=== PATIENT | male | born 1975 | race Caucasian/White ===

== ENCOUNTER 2017-02-10 20:38 | Emergency (ER) | payer MEDICAID, OTHER ==
[~2017-02-10] VITALS: Ht 170.2 cm; Wt 81.8 kg
[2017-02-10] MEDS ORDERED: KETOROLAC 60MG/2ML VIAL IM ONE (22:15)
[2017-02-10] MEDS ORDERED: CEFTRIAXONE SODIUM 1 G/VIAL IM ONE (23:00)
[2017-02-10] MEDS ORDERED: LIDOCAINE HCL 1% 20ML VIAL (Pyxis) INJ MC ONE (23:15)
[2017-02-11] MEDS ORDERED: TRAMADOL 50MG TABLET PO ONE (01:30)
[2017-02-11 02:22] VITALS: BP 135/79
== END 2017-02-11 02:24 | disposition home or self-care (01) ==
LOC: ER 21:50
DX: L03.116 Cellulitis of left lower limb (principal); F15.10 Other stimulant abuse, uncomplicated
CPT/HCPCS: 93971; 96372; 99284; J0696; J1885; J3490; Z7610

== ENCOUNTER 2017-02-23 10:39 | Emergency (ER) | payer MEDICAID ==
[~2017-02-23] VITALS: Ht 170.2 cm; Wt 82.0 kg
[2017-02-23 10:40] VITALS: BP 156/85
[2017-02-23] MEDS ORDERED: DIPHENHYDRAMINE 25MG CAPSULE PO ONE (11:00)
[2017-02-23] MEDS ORDERED: TETANUS, DIPHTHERIA, PERTUSSIS VAC/PF 0.5ML (>7YR OLD) IM ONE (11:15)
[2017-02-23] MEDS ORDERED: BACITRACIN ZINC OINT UDPKT TOP ONE ×2 (11:30)
[2017-02-23] MEDS ORDERED: LIDOCAINE HCL 1% 20ML VIAL (Pyxis) INJ MC ONE (11:30)
[2017-02-23] MEDS ORDERED: IBUPROFEN 800MG TABLET PO ONE (12:15)
== END 2017-02-23 12:55 | disposition home or self-care (01) ==
LOC: ER 11:29
DX: S80.12XA Contusion of left lower leg, initial encounter (principal); F15.10 Other stimulant abuse, uncomplicated; Y09 Assault by unspecified means; Y99.9 Unspecified external cause status; Y92.89 Other specified places as the place of occurrence of the external cause; Z23 Encounter for immunization
CPT/HCPCS: 10060; 90471; 90715; 99284; A4217; J3490; Z7610

== ENCOUNTER 2018-01-27 19:41 | Emergency (ER) | payer MEDICAID ==
[~2018-01-27] VITALS: Ht 170.2 cm; Wt 72.0 kg
[2018-01-27 19:52] VITALS: BP 105/66
[2018-01-27] MEDS ORDERED: TETANUS, DIPHTHERIA, PERTUSSIS VAC/PF 0.5ML (>7YR OLD) IM ONE (20:00)
[2018-01-27] MEDS ORDERED: MORPHINE SULFATE 4 MG/ML CPJ (NOT FOR IM USE) IV ONE (20:00)
== END 2018-01-27 21:00 | disposition left against medical advice (07) ==
LOC: ER 20:58
DX: S09.90XA Unspecified injury of head, initial encounter (principal); W21.11XA Struck by baseball bat, initial encounter; Y93.64 Activity, baseball; Z23 Encounter for immunization
CPT/HCPCS: 99281; A4217; Z7610